=== PATIENT | female | born 1975 | race African-American/Black ===

== ENCOUNTER 2016-06-30 10:18 | Inpatient (IN) | payer MEDICARE, MEDICAID ==
[2016-06-30] VITALS (450 sets, daily range): BP systolic 76–189; BP diastolic 51–146; PULSE 40–151; TEMP 31.4–35.9; O2SAT 45–100
[~2016-06-30] VITALS: Ht 170.2 cm; Wt 84.5 kg
[~2016-06-30 10:18] MED LIST: ALEVE 220MG220 MG PO; AMBIEN CR 12.12.5 MG PO; AMITRIPTYLINE H25 M1 PO; CATAPRES 0.1MG0.1 MG PO; CIPRO 500MG TA500 MG PO; FLOVENT DI250 MCG/Ac IH; HYDROMORPHONE HY8 MG PO; KLONOPIN 0.5MG0.5 MG PO; LAMICTAL 100MG100 MG PO; LIORESAL 1010 MG/TAB PO; LIORESAL20 MG PO; LYRICA 100MG C100 M1; NAPROSYN500 MG PO; OXYCODONE5 M1 PO; PROVENTIL0.09 MG/A1 IH; RELISTOR I12 MG/0.6 SC; ROBAXIN 75750 MG/TAB PO; ROXICODONE 55 MG/TAB PO; STOOL SOFTENER; URELLE PO; VALIUM5 MG PO; ZOLOFT 100MG100 MG PO
[2016-06-30 10:34] LABS: BASO # 0.1 (0.0-0.2); BASO % 0.6 % (0.0-2.0); EOS # 0.1 (0.0-0.7); GRAN # 7.3 (1.4-6.5); GRAN % 61.3 % (42.2-75.2); HEMATOCRIT 44.7 % (37.0-47.0); HEMOGLOBIN 14.7 g/dl (12.5-16.0); LYMPH # 3.8 (1.2-3.4); LYMPH % 31.7 % (20.0-51.0); MEAN CELL VOLUME 94 fl (80.0-100.0); MEAN CORPUSCULAR HEMOGLOBIN 31 pg (27.0-31.0); MEAN CORPUSCULAR HGB CONC 33 g/dl (33.0-37.0); MEAN PLATELET VOLUME 11.4 fl (7.4-10.4); MONO # 0.5 (0.1-0.6); MONO % 4.5 % (1.7-9.3); PLATELET COUNT 205 K/mm3 (130-400); RED BLOOD COUNT 4.76 M/mm3 (4.10-5.30); REDCELL DISTRIBUTION WIDTH-CV 12.9 % (11.5-14.5); WHITE BLOOD COUNT 11.9 K/mm3 (4.8-10.8)
[2016-06-30 10:50] LABS: ADJUSTED CALCIUM 8.6 mg/dL (8.4-10.2); ALBUMIN 3.6 gm/dL (3.5-5.0); BILIRUBIN,TOTAL 1.2 mg/dL (0.0-1.0); CALCIUM 8.3 mg/dL (8.4-10.2); CREATININE, serum 0.7 mg/dL (0.52-1.25); TOTAL PROTEIN 7.2 gm/dL (6.4-8.2)
[2016-06-30 11:00] LABS: POTASSIUM 2.5 mmol/L (3.4-5.0)
[2016-06-30 11:02] LABS: TROPONIN-I 0.654 ng/mL (0.000-0.034)
[2016-06-30 11:15] LABS: PH 6 (5-8); URINE APPEARANCE Hazy; URINE BACTERIA None Seen /hpf; URINE BILIRUBIN Negative (NEGATIVE); URINE BLOOD Negative (NEGATIVE); URINE COLOR Amber; URINE GLUCOSE Negative (NEGATIVE); URINE KETONE 1+ (NEGATIVE); URINE UROBILINOGEN >=4.0 mg/dL (NEGATIVE)
[2016-06-30 12:14] LABS: PROTHROMBIN TIME 11.6 SECONDS (9.7-12.8)
[2016-06-30 12:22] LABS: ARTERIAL BLD GAS TCO2 CT 20.1; ARTERIAL BLOOD GAS BASE EXCESS -5.6 (-2-2); ARTERIAL BLOOD GAS PHT 7.36 C (7.35-7.45); ARTERIAL BLOOD GAS PO2 63.8 mmHg (80-100); ARTERIAL BLOOD GAS PO2T 63.8 (80-100); ARTERIAL BLOOD GAS pH 7.36 (7.35-7.45); OXYHEMOGLOBIN 88.6 %
[2016-06-30 12:23] LABS: ABG VENTILATOR TIDAL VOLUME 500 mL; ATS? NO
[2016-06-30] MEDS ORDERED: AMITRIPTYLINE H10 M1 (12:48)
[2016-06-30 13:03] LABS: VENOUS BLOOD GAS BE 0.5 (-4-4); VENOUS BLOOD GAS SAO2 73.8 % (60-80)
[2016-06-30 13:04] LABS: VENOUS BLOOD GAS SITE CENTRAL LINE
[2016-06-30 13:38] LABS: AMYLASE 82 U/L (30-110); CREATINE KINASE 285 U/L (30-135); LIPASE 364 U/L (23-300)
[2016-06-30 13:41] LABS: PARTIAL THROMBOPLASTIN TIME 27.6 SECONDS (26.0-37.0); PROTHROMBIN TIME 11.6 SECONDS (9.7-12.8)
[2016-06-30 15:02] LABS: PH 6 (5-8); SQUAMOUS EPITHELIAL None Seen /hpf; URINE APPEARANCE Clear; URINE BACTERIA Rare /hpf; URINE BILIRUBIN Negative (NEGATIVE); URINE BLOOD 1+ (NEGATIVE); URINE COLOR Colorless; URINE GLUCOSE 1+ (NEGATIVE); URINE KETONE Trace (NEGATIVE); URINE RBC None Seen /hpf; URINE UROBILINOGEN Negative (NEGATIVE); URINE WBC 0-2 /hpf
[2016-06-30 15:14] LABS: AMPHETAMINE URINE POSITIVE; BARBITURATES URINE NEGATIVE; BENZODIAZEPINES URINE NEGATIVE; BUPRENORPHINE URINE NEGATIVE; METHADONE URINE NEGATIVE; OPIATES URINE NEGATIVE; OXYCODONE URINE POSITIVE; PHENCYCLIDINE URINE NEGATIVE; PROPOXYPHENE URINE NEGATIVE; THC CANNABINOIDS URINE NEGATIVE
[2016-06-30 18:37] LABS: INR 1.1 (0.8-3.0); PROTHROMBIN TIME 12.2 SECONDS (9.7-12.8)
[2016-06-30 18:39] LABS: PARTIAL THROMBOPLASTIN TIME 28.3 SECONDS (26.0-37.0)
[2016-06-30 18:50] LABS: ALBUMIN 3.1 gm/dL (3.5-5.0); BILIRUBIN,TOTAL 1.3 mg/dL (0.0-1.0); CALCIUM 7.3 mg/dL (8.4-10.2); CREATININE, serum 0.54 mg/dL (0.52-1.25); MAGNESIUM 1.3 mg/dL (1.6-2.3); POTASSIUM 3.2 mmol/L (3.4-5.0); TOTAL PROTEIN 6.6 gm/dL (6.4-8.2)
[2016-06-30 19:06] LABS: VENOUS BLOOD GAS SAO2 61.1 % (60-80); VENOUS BLOOD GAS SITE CENTRAL LINE
[2016-06-30 19:07] LABS: BILIRUBIN,DIRECT 0.6 mg/dL (0.0-0.4)
[2016-06-30 19:09] LABS: TROPONIN-I 1.44 ng/mL (0.000-0.034)
[2016-07-01] VITALS (994 sets, daily range): BP systolic 101–141; BP diastolic 7–94; PULSE 59–101; TEMP 32–36.5; O2SAT 45–100
[2016-07-01 00:32] LABS: VENOUS BLOOD GAS BE -7.4 (-4-4); VENOUS BLOOD GAS SAO2 77.3 % (60-80); VENOUS BLOOD GAS SITE CENTRAL LINE
[2016-07-01 00:33] LABS: ARTERIAL BLD GAS O2 SATURATION 94.8 % (92-100); ARTERIAL BLD GAS TCO2 CT 19.5; ARTERIAL BLOOD GAS BASE EXCESS -7.7 (-2-2); ARTERIAL BLOOD GAS HCO3 18.3 meq/L (22-26)
[2016-07-01 00:34] LABS: ALLEN TEST NO; ARTERIAL BLOOD GAS PO2 69.1 mmHg (80-100); ARTERIAL BLOOD GAS pH 7.33 (7.35-7.45); ATS? NO
[2016-07-01 00:39] LABS: INR 1.1 (0.8-3.0); PROTHROMBIN TIME 11.7 SECONDS (9.7-12.8)
[2016-07-01 00:50] LABS: CREATININE, serum 0.51 mg/dL (0.52-1.25); MAGNESIUM 1.7 mg/dL (1.6-2.3); PHOSPHOROUS 2.9 mg/dL (2.5-4.5); POTASSIUM 3.9 mmol/L (3.4-5.0)
[2016-07-01 01:07] LABS: ALBUMIN 3.3 gm/dL (3.5-5.0); BILIRUBIN,DIRECT 1.2 mg/dL (0.0-0.4); BILIRUBIN,TOTAL 1.5 mg/dL (0.0-1.0); TOTAL PROTEIN 6.6 gm/dL (6.4-8.2)
[2016-07-01 01:17] LABS: TROPONIN-I 1.8 ng/mL (0.000-0.034)
[2016-07-01 05:51] LABS: ARTERIAL BLOOD GAS PO2 78.5 mmHg (80-100); ARTERIAL BLOOD GAS pH 7.37 (7.35-7.45)
[2016-07-01 05:52] LABS: ALLEN TEST NO; ARTERIAL BLD GAS TCO2 CT 21.3; ARTERIAL BLOOD GAS HCO3 20.1 meq/L (22-26); ATS? NO
[2016-07-01 06:33] LABS: PROTHROMBIN TIME 11.6 SECONDS (9.7-12.8)
[2016-07-01 06:36] LABS: PARTIAL THROMBOPLASTIN TIME 29.6 SECONDS (26.0-37.0)
[2016-07-01 06:45] LABS: ADJUSTED CALCIUM 7.6 mg/dL (8.4-10.2); BILIRUBIN,DIRECT 0.7 mg/dL (0.0-0.4); BILIRUBIN,TOTAL 0.9 mg/dL (0.0-1.0); CALCIUM 6.8 mg/dL (8.4-10.2); CREATININE, serum 0.44 mg/dL (0.52-1.25); TOTAL PROTEIN 6.2 gm/dL (6.4-8.2)
[2016-07-01 07:04] LABS: POTASSIUM 2.9 mmol/L (3.4-5.0)
[2016-07-01 07:13] LABS: MAGNESIUM 1.8 mg/dL (1.6-2.3); PHOSPHOROUS 1.2 mg/dL (2.5-4.5)
[2016-07-01 07:34] LABS: TROPONIN-I 2.08 ng/mL (0.000-0.034)
[2016-07-01] MEDS ORDERED: DAZIDOX20 MG (07:41)
[2016-07-01 10:47] LABS: ARTERIAL BLD GAS O2 SATURATION 96.8 % (92-100); ARTERIAL BLD GAS TCO2 CT 21.1; ARTERIAL BLOOD GAS BASE EXCESS -3.5 (-2-2); ARTERIAL BLOOD GAS HCO3 20.1 meq/L (22-26); ARTERIAL BLOOD GAS PO2 92.9 mmHg (80-100); ARTERIAL BLOOD GAS pH 7.41 (7.35-7.45)
[2016-07-01 10:48] LABS: ALLEN TEST NO; ATS? NO
[2016-07-01 11:55] LABS: BASO % 0.5 % (0.0-2.0); EOS % 0.6 % (0-4.0); GRAN # 4.8 (1.4-6.5); GRAN % 78.5 % (42.2-75.2); HEMATOCRIT 42.3 % (37.0-47.0); HEMOGLOBIN 14.1 g/dl (12.5-16.0); LYMPH % 15.4 % (20.0-51.0); MEAN CELL VOLUME 94 fl (80.0-100.0); MEAN CORPUSCULAR HEMOGLOBIN 31 pg (27.0-31.0); MEAN CORPUSCULAR HGB CONC 33 g/dl (33.0-37.0); MEAN PLATELET VOLUME 12.1 fl (7.4-10.4); MONO # 0.3 (0.1-0.6); MONO % 4.7 % (1.7-9.3); PLATELET COUNT 157 K/mm3 (130-400); RED BLOOD COUNT 4.51 M/mm3 (4.10-5.30); REDCELL DISTRIBUTION WIDTH-CV 12.9 % (11.5-14.5); WHITE BLOOD COUNT 6.2 K/mm3 (4.8-10.8)
[2016-07-01 11:58] LABS: ARTERIAL BLD GAS O2 SATURATION 95.5 % (92-100); ARTERIAL BLD GAS TCO2 CT 22.8; ARTERIAL BLOOD GAS BASE EXCESS -4.2 (-2-2); ARTERIAL BLOOD GAS HCO3 21.5 meq/L (22-26); ARTERIAL BLOOD GAS PHT 7.39 C (7.35-7.45); ARTERIAL BLOOD GAS PO2 85.3 mmHg (80-100); ARTERIAL BLOOD GAS PO2T 64.7 (80-100); ARTERIAL BLOOD GAS pH 7.33 (7.35-7.45); OXYHEMOGLOBIN 94.7 %
[2016-07-01 11:59] LABS: ATS? NO
[2016-07-01 12:59] LABS: PROTHROMBIN TIME 11.6 SECONDS (9.7-12.8)
[2016-07-01 13:02] LABS: PARTIAL THROMBOPLASTIN TIME 31.2 SECONDS (26.0-37.0)
[2016-07-01 14:08] LABS: ALBUMIN 2.8 gm/dL (3.5-5.0); CALCIUM 6.6 mg/dL (8.4-10.2); CREATININE, serum 0.45 mg/dL (0.52-1.25); MAGNESIUM 1.5 mg/dL (1.6-2.3); PHOSPHOROUS 1.4 mg/dL (2.5-4.5); POTASSIUM 3.5 mmol/L (3.4-5.0)
[2016-07-01 14:25] LABS: TROPONIN-I 2.08 ng/mL (0.000-0.034)
[2016-07-01 14:33] LABS: BILIRUBIN,DIRECT 0.7 mg/dL (0.0-0.4)
[2016-07-01 18:06] LABS: INR 1.1 (0.8-3.0); PROTHROMBIN TIME 11.8 SECONDS (9.7-12.8)
[2016-07-01 18:14] LABS: ALBUMIN 2.6 gm/dL (3.5-5.0); CALCIUM 6.6 mg/dL (8.4-10.2); CREATININE, serum 0.5 mg/dL (0.52-1.25); MAGNESIUM 1.4 mg/dL (1.6-2.3); PHOSPHOROUS 1.4 mg/dL (2.5-4.5); POTASSIUM 3.8 mmol/L (3.4-5.0); TOTAL PROTEIN 5.9 gm/dL (6.4-8.2)
[2016-07-01 18:21] LABS: BILIRUBIN,DIRECT 0.7 mg/dL (0.0-0.4)
[2016-07-01 18:26] LABS: TROPONIN-I 1.79 ng/mL (0.000-0.034)
[2016-07-02] VITALS (1216 sets, daily range): BP systolic 95–147; BP diastolic 59–100; PULSE 102–140; TEMP 36.7–37.3; O2SAT 59–100
[2016-07-02 00:58] LABS: INR 1.1 (0.8-3.0); PROTHROMBIN TIME 12.6 SECONDS (9.7-12.8)
[2016-07-02 01:00] LABS: CALCIUM 6.4 mg/dL (8.4-10.2); CREATININE, serum 0.49 mg/dL (0.52-1.25); MAGNESIUM 1.2 mg/dL (1.6-2.3); PHOSPHOROUS 2.1 mg/dL (2.5-4.5); POTASSIUM 3.7 mmol/L (3.4-5.0)
[2016-07-02 01:22] LABS: ALBUMIN 2.5 gm/dL (3.5-5.0); BILIRUBIN,DIRECT 0.6 mg/dL (0.0-0.4); BILIRUBIN,TOTAL 0.7 mg/dL (0.0-1.0); TOTAL PROTEIN 5.6 gm/dL (6.4-8.2)
[2016-07-02 01:23] LABS: TROPONIN-I 1.88 ng/mL (0.000-0.034)
[2016-07-02 05:20] LABS: ARTERIAL BLD GAS O2 SATURATION 96.9 % (92-100); ARTERIAL BLD GAS TCO2 CT 19.9; ARTERIAL BLOOD GAS BASE EXCESS -4.5 (-2-2); ARTERIAL BLOOD GAS HCO3 18.9 meq/L (22-26); ARTERIAL BLOOD GAS PO2 88.2 mmHg (80-100); ARTERIAL BLOOD GAS pH 7.41 (7.35-7.45)
[2016-07-02 05:21] LABS: ALLEN TEST NO; ATS? NO
[2016-07-02 06:03] LABS: BASO % 0.5 % (0.0-2.0); EOS # 0.1 (0.0-0.7); EOS % 1.2 % (0-4.0); GRAN % 83.1 % (42.2-75.2); LYMPH # 0.7 (1.2-3.4); LYMPH % 11.1 % (20.0-51.0); MEAN CELL VOLUME 95 fl (80.0-100.0); MEAN CORPUSCULAR HGB CONC 33 g/dl (33.0-37.0); MONO # 0.2 (0.1-0.6); MONO % 3.8 % (1.7-9.3); PLATELET COUNT 108 K/mm3 (130-400); REDCELL DISTRIBUTION WIDTH-CV 13.1 % (11.5-14.5); WHITE BLOOD COUNT 6.1 K/mm3 (4.8-10.8)
[2016-07-02 06:15] LABS: ADJUSTED CALCIUM 7.7 mg/dL (8.4-10.2); ALBUMIN 2.3 gm/dL (3.5-5.0); BILIRUBIN,TOTAL 0.8 mg/dL (0.0-1.0); CALCIUM 6.3 mg/dL (8.4-10.2); CREATININE, serum 0.51 mg/dL (0.52-1.25); MAGNESIUM 1.2 mg/dL (1.6-2.3); PHOSPHOROUS 2.2 mg/dL (2.5-4.5); POTASSIUM 3.7 mmol/L (3.4-5.0); TOTAL PROTEIN 5.3 gm/dL (6.4-8.2)
[2016-07-02 06:56] LABS: HEMOGLOBIN 11.8 g/dl (12.5-16.0); MEAN CORPUSCULAR HEMOGLOBIN 31 pg (27.0-31.0)
[2016-07-02 22:53] LABS: PH 5 (5-8); SQUAMOUS EPITHELIAL 0-2 /hpf; URINE APPEARANCE Hazy; URINE BACTERIA Rare /hpf; URINE BILIRUBIN Negative (NEGATIVE); URINE BLOOD 3+ (NEGATIVE); URINE COLOR Yellow; URINE GLUCOSE Negative (NEGATIVE); URINE KETONE Negative (NEGATIVE); URINE RBC >50 /hpf; URINE UROBILINOGEN Negative (NEGATIVE); URINE WBC >50 /hpf
[2016-07-03] VITALS (1091 sets, daily range): BP systolic 149–185; BP diastolic 90–114; PULSE 115–130; TEMP 99.9–101.5; O2SAT 48–100
[2016-07-03 05:56] LABS: BASO % 0.5 % (0.0-2.0); EOS # 0.1 (0.0-0.7); EOS % 1.1 % (0-4.0); GRAN # 4.8 (1.4-6.5); GRAN % 74.9 % (42.2-75.2); LYMPH # 1.2 (1.2-3.4); MEAN CELL VOLUME 94 fl (80.0-100.0); MEAN CORPUSCULAR HGB CONC 33 g/dl (33.0-37.0); MEAN PLATELET VOLUME 12.4 fl (7.4-10.4); MONO # 0.3 (0.1-0.6); MONO % 4.2 % (1.7-9.3); PLATELET COUNT 98 K/mm3 (130-400); RED BLOOD COUNT 3.45 M/mm3 (4.10-5.30); REDCELL DISTRIBUTION WIDTH-CV 13.3 % (11.5-14.5); WHITE BLOOD COUNT 6.4 K/mm3 (4.8-10.8)
[2016-07-03 06:00] LABS: HEMATOCRIT 32.3 % (37.0-47.0); HEMOGLOBIN 10.7 g/dl (12.5-16.0); MEAN CORPUSCULAR HEMOGLOBIN 31 pg (27.0-31.0)
[2016-07-03 06:25] LABS: ADJUSTED CALCIUM 7.5 mg/dL (8.4-10.2); ALBUMIN 2.4 gm/dL (3.5-5.0); BILIRUBIN,TOTAL 0.8 mg/dL (0.0-1.0); CALCIUM 6.2 mg/dL (8.4-10.2); CREATININE, serum 0.63 mg/dL (0.52-1.25); MAGNESIUM 1.1 mg/dL (1.6-2.3); PHOSPHOROUS 2.5 mg/dL (2.5-4.5); POTASSIUM 3.3 mmol/L (3.4-5.0); TOTAL PROTEIN 5.4 gm/dL (6.4-8.2)
[2016-07-03 11:03] LABS: BENZODIAZEPINE SCREEN BLOOD Not Detected (()); DRUG SCREEN BLD - ALCOHOL None Detected (()); TRICYCLIC SCREEN BLOOD Not Detected (())
[2016-07-03 13:15] LABS: SALICYLATE SCREEN BLOOD Not Detected (())
[2016-07-03 13:23] LABS: CREATININE, serum 0.59 mg/dL (0.52-1.25); POTASSIUM 3.9 mmol/L (3.4-5.0)
[2016-07-03 18:30] LABS: MAGNESIUM 2.3 mg/dL (1.6-2.3)
[2016-07-04] VITALS (888 sets, daily range): BP systolic 127–182; BP diastolic 62–102; PULSE 101–119; TEMP 37.1; O2SAT 57–100
[2016-07-04 05:21] LABS: BASO % 0.5 % (0.0-2.0); EOS # 0.1 (0.0-0.7); EOS % 1.8 % (0-4.0); GRAN % 77.1 % (42.2-75.2); LYMPH # 0.9 (1.2-3.4); LYMPH % 14.3 % (20.0-51.0); MEAN CELL VOLUME 92 fl (80.0-100.0); MEAN CORPUSCULAR HGB CONC 34 g/dl (33.0-37.0); MEAN PLATELET VOLUME 11.7 fl (7.4-10.4); MONO # 0.4 (0.1-0.6); PLATELET COUNT 101 K/mm3 (130-400); RED BLOOD COUNT 3.82 M/mm3 (4.10-5.30); REDCELL DISTRIBUTION WIDTH-CV 13.1 % (11.5-14.5); WHITE BLOOD COUNT 6.5 K/mm3 (4.8-10.8)
[2016-07-04 05:30] LABS: ADJUSTED CALCIUM 7.9 mg/dL (8.4-10.2); ALBUMIN 2.7 gm/dL (3.5-5.0); BILIRUBIN,TOTAL 1.2 mg/dL (0.0-1.0); CALCIUM 6.9 mg/dL (8.4-10.2); CREATININE, serum 0.51 mg/dL (0.52-1.25); MAGNESIUM 1.7 mg/dL (1.6-2.3); PHOSPHOROUS 2.8 mg/dL (2.5-4.5); POTASSIUM 3.6 mmol/L (3.4-5.0); TOTAL PROTEIN 6.1 gm/dL (6.4-8.2)
[2016-07-04 05:43] LABS: TROPONIN-I 2.55 ng/mL (0.000-0.034)
[2016-07-04 05:52] LABS: HEMATOCRIT 35.2 % (37.0-47.0); HEMOGLOBIN 11.9 g/dl (12.5-16.0); MEAN CORPUSCULAR HEMOGLOBIN 31 pg (27.0-31.0)
[2016-07-04 10:53] LABS: ARTERIAL BLD GAS TCO2 CT 21.8; ARTERIAL BLOOD GAS BASE EXCESS -1.7 (-2-2); ARTERIAL BLOOD GAS HCO3 20.9 meq/L (22-26); ARTERIAL BLOOD GAS PHT 7.47 C (7.35-7.45); ARTERIAL BLOOD GAS pH 7.47 (7.35-7.45); ATS? YES; OXYHEMOGLOBIN 90.2 %
[2016-07-05] VITALS (1007 sets, daily range): BP systolic 104–182; BP diastolic 67–110; PULSE 93–115; TEMP 36.6–37.4; O2SAT 30–100
[2016-07-05 05:32] LABS: BASO % 0.8 % (0.0-2.0); EOS # 0.2 (0.0-0.7); EOS % 4.4 % (0-4.0); GRAN # 2.1 (1.4-6.5); GRAN % 58.9 % (42.2-75.2); HEMATOCRIT 39.3 % (37.0-47.0); HEMOGLOBIN 13.1 g/dl (12.5-16.0); LYMPH # 0.8 (1.2-3.4); LYMPH % 22.9 % (20.0-51.0); MEAN CELL VOLUME 93 fl (80.0-100.0); MEAN CORPUSCULAR HEMOGLOBIN 31 pg (27.0-31.0); MEAN CORPUSCULAR HGB CONC 33 g/dl (33.0-37.0); MEAN PLATELET VOLUME 11.4 fl (7.4-10.4); MONO # 0.5 (0.1-0.6); MONO % 12.4 % (1.7-9.3); PLATELET COUNT 101 K/mm3 (130-400); RED BLOOD COUNT 4.24 M/mm3 (4.10-5.30); WHITE BLOOD COUNT 3.6 K/mm3 (4.8-10.8)
[2016-07-05 05:45] LABS: ADJUSTED CALCIUM 8.9 mg/dL (8.4-10.2); ALBUMIN 2.9 gm/dL (3.5-5.0); BILIRUBIN,TOTAL 1.2 mg/dL (0.0-1.0); CREATININE, serum 0.42 mg/dL (0.52-1.25); MAGNESIUM 1.6 mg/dL (1.6-2.3); PHOSPHOROUS 3.4 mg/dL (2.5-4.5); POTASSIUM 3.8 mmol/L (3.4-5.0); TOTAL PROTEIN 6.6 gm/dL (6.4-8.2)
[2016-07-06] VITALS (234 sets, daily range): BP systolic 123–160; BP diastolic 78–101; PULSE 80–106; TEMP 98.1–100; O2SAT 46–100
[2016-07-06 06:12] LABS: MEAN CELL VOLUME 91 fl (80.0-100.0); MEAN CORPUSCULAR HGB CONC 33 g/dl (33.0-37.0); MEAN PLATELET VOLUME 11.9 fl (7.4-10.4); PLATELET COUNT 105 K/mm3 (130-400); RED BLOOD COUNT 3.84 M/mm3 (4.10-5.30); REDCELL DISTRIBUTION WIDTH-CV 12.9 % (11.5-14.5); WHITE BLOOD COUNT 3.9 K/mm3 (4.8-10.8)
[2016-07-06 06:18] LABS: ADD PATHOLOGY DIFF REVIEW NO; ALBUMIN 2.6 gm/dL (3.5-5.0); BILIRUBIN,TOTAL 0.8 mg/dL (0.0-1.0); CALCIUM 7.9 mg/dL (8.4-10.2); CREATININE, serum 0.54 mg/dL (0.52-1.25); HEMOGLOBIN 11.7 g/dl (12.5-16.0); MAGNESIUM 1.6 mg/dL (1.6-2.3); MEAN CORPUSCULAR HEMOGLOBIN 30 pg (27.0-31.0); PHOSPHOROUS 4.1 mg/dL (2.5-4.5); TOTAL PROTEIN 5.9 gm/dL (6.4-8.2)
[2016-07-06 06:56] LABS: BAND 2 % (0-10)
[2016-07-06 06:58] LABS: EOSINOPHIL 7 % (0-4); PLATELET ESTIMATE DECREASED (NORMAL)
[2016-07-06 06:59] LABS: TOTAL CELLS COUNTED 100
[2016-07-06 07:01] LABS: NEUTROPHILS 45 % (42.0-75.2)
[2016-07-07] VITALS (351 sets, daily range): BP systolic 96–159; BP diastolic 64–120; PULSE 81–106; TEMP 98.1–99.6; O2SAT 71–100
[2016-07-07 07:48] LABS: MEAN CELL VOLUME 92 fl (80.0-100.0); MEAN CORPUSCULAR HGB CONC 33 g/dl (33.0-37.0); MEAN PLATELET VOLUME 11.8 fl (7.4-10.4); PLATELET COUNT 123 K/mm3 (130-400); REDCELL DISTRIBUTION WIDTH-CV 13.2 % (11.5-14.5); WHITE BLOOD COUNT 4.8 K/mm3 (4.8-10.8)
[2016-07-07 07:59] LABS: ADD PATHOLOGY DIFF REVIEW NO; HEMATOCRIT 34.9 % (37.0-47.0); HEMOGLOBIN 11.6 g/dl (12.5-16.0); MEAN CORPUSCULAR HEMOGLOBIN 31 pg (27.0-31.0)
[2016-07-07 08:12] LABS: ALBUMIN 2.7 gm/dL (3.5-5.0); BILIRUBIN,DIRECT 0.4 mg/dL (0.0-0.4); BILIRUBIN,TOTAL 0.5 mg/dL (0.0-1.0); CALCIUM 8.4 mg/dL (8.4-10.2); CREATININE, serum 0.59 mg/dL (0.52-1.25); TOTAL PROTEIN 6.2 gm/dL (6.4-8.2)
[2016-07-07 11:31] LABS: BAND 6 % (0-10); BASOPHIL 2 % (0-2); EOSINOPHIL 2 % (0-4); HYPOCHROMIA 1+; METAMYELOCYTE 1 % (0-0); NEUTROPHILS 41 % (42.0-75.2); PLATELET ESTIMATE DECREASED (NORMAL); TOTAL CELLS COUNTED 100
[2016-07-08] VITALS (219 sets, daily range): BP systolic 110–143; BP diastolic 51–97; PULSE 91–122; TEMP 97.5–101.3; O2SAT 82–99
[2016-07-08 06:19] LABS: HEMOGLOBIN 12.1 g/dl (12.5-16.0); MEAN CELL VOLUME 91 fl (80.0-100.0); MEAN CORPUSCULAR HEMOGLOBIN 31 pg (27.0-31.0); MEAN CORPUSCULAR HGB CONC 34 g/dl (33.0-37.0); PLATELET COUNT 151 K/mm3 (130-400); RED BLOOD COUNT 3.95 M/mm3 (4.10-5.30); WHITE BLOOD COUNT 4.8 K/mm3 (4.8-10.8)
[2016-07-08 06:22] LABS: HEMATOCRIT 35.9 % (37.0-47.0)
[2016-07-08 06:23] LABS: ADD PATHOLOGY DIFF REVIEW NO
[2016-07-08 06:45] LABS: ALBUMIN 3.1 gm/dL (3.5-5.0); BILIRUBIN,DIRECT 0.4 mg/dL (0.0-0.4); BILIRUBIN,TOTAL 0.7 mg/dL (0.0-1.0); CREATININE, serum 0.6 mg/dL (0.52-1.25); POTASSIUM 3.9 mmol/L (3.4-5.0); TOTAL PROTEIN 6.9 gm/dL (6.4-8.2)
[2016-07-08 09:59] LABS: BAND 4 % (0-10); BASOPHIL 1 % (0-2); NEUTROPHILS 38 % (42.0-75.2); PLATELET ESTIMATE NORMAL (NORMAL)
[2016-07-08 10:00] LABS: EOSINOPHIL 4 % (0-4); TOTAL CELLS COUNTED 100
[2016-07-09] VITALS (8 sets, daily range): BP systolic 92–127; BP diastolic 49–81; PULSE 84–107; TEMP 97.4–100.8
[2016-07-09 06:56] LABS: BASO % 0.4 % (0.0-2.0); EOS # 0.2 (0.0-0.7); EOS % 2.9 % (0-4.0); GRAN # 2.7 (1.4-6.5); GRAN % 51.9 % (42.2-75.2); LYMPH # 1.7 (1.2-3.4); LYMPH % 32.2 % (20.0-51.0); MEAN CELL VOLUME 91 fl (80.0-100.0); MEAN CORPUSCULAR HEMOGLOBIN 30 pg (27.0-31.0); MEAN CORPUSCULAR HGB CONC 33 g/dl (33.0-37.0); MEAN PLATELET VOLUME 12.1 fl (7.4-10.4); MONO # 0.7 (0.1-0.6); MONO % 12.4 % (1.7-9.3); PLATELET COUNT 193 K/mm3 (130-400); RED BLOOD COUNT 3.95 M/mm3 (4.10-5.30); REDCELL DISTRIBUTION WIDTH-CV 13.2 % (11.5-14.5); WHITE BLOOD COUNT 5.3 K/mm3 (4.8-10.8)
[2016-07-09 07:06] LABS: PH 7 (5-8); URINE APPEARANCE Hazy; URINE BACTERIA Rare /hpf; URINE BILIRUBIN Negative (NEGATIVE); URINE BLOOD Negative (NEGATIVE); URINE COLOR Yellow; URINE GLUCOSE Negative (NEGATIVE); URINE KETONE Negative (NEGATIVE); URINE RBC 0-2 /hpf; URINE UROBILINOGEN Negative (NEGATIVE); URINE WBC 0-2 /hpf
[2016-07-09 07:15] LABS: CALCIUM 9.2 mg/dL (8.4-10.2); CREATININE, serum 0.56 mg/dL (0.52-1.25); POTASSIUM 3.8 mmol/L (3.4-5.0)
[2016-07-10 00:31] VITALS: BP 99/59; PULSE 107; TEMP 99.2
[2016-07-10 03:52] VITALS: BP 94/55; PULSE 95; TEMP 98.7
[2016-07-10 05:50] VITALS: BP 115/65; PULSE 105; TEMP 99.1
[2016-07-10 07:34] LABS: BASO # 0.1 (0.0-0.2); BASO % 0.8 % (0.0-2.0); EOS # 0.1 (0.0-0.7); EOS % 2.1 % (0-4.0); GRAN # 4.3 (1.4-6.5); GRAN % 64.6 % (42.2-75.2); LYMPH # 1.4 (1.2-3.4); LYMPH % 21.9 % (20.0-51.0); MEAN CELL VOLUME 93 fl (80.0-100.0); MEAN CORPUSCULAR HGB CONC 33 g/dl (33.0-37.0); MEAN PLATELET VOLUME 11.9 fl (7.4-10.4); MONO # 0.7 (0.1-0.6); MONO % 10.3 % (1.7-9.3); PLATELET COUNT 241 K/mm3 (130-400); RED BLOOD COUNT 3.67 M/mm3 (4.10-5.30); REDCELL DISTRIBUTION WIDTH-CV 13.2 % (11.5-14.5); WHITE BLOOD COUNT 6.6 K/mm3 (4.8-10.8)
[2016-07-10 08:03] LABS: CREATININE, serum 0.63 mg/dL (0.52-1.25); POTASSIUM 3.7 mmol/L (3.4-5.0)
[2016-07-10 08:09] LABS: HEMOGLOBIN 11.2 g/dl (12.5-16.0); MEAN CORPUSCULAR HEMOGLOBIN 31 pg (27.0-31.0)
[2016-07-10 08:14] VITALS: BP 99/68; PULSE 90; TEMP 97.4
[2016-07-10 10:24] VITALS: BP 91/77; PULSE 82; TEMP 97.4
[2016-07-10] MEDS ORDERED: EFFIENT5 MG PO (11:43)
[2016-07-10] MEDS ORDERED: LIPITOR 10MG10 MG PO (11:43)
[2016-07-10] MEDS ORDERED: LOPRESSOR 550 MG/TAB PO (11:43)
[2016-07-10] MEDS ORDERED: CLEOCIN HCL300 MG PO (11:43)
[2016-07-10] MEDS ORDERED: PLAVIX 75MG TAB75 MG PO (11:43)
[2016-07-10] MEDS ORDERED: ZESTRIL 20MG TA20 MG PO (11:43)
[2016-07-10] MEDS ORDERED: NICODERM C21 MG/PATC TD (11:43)
[2016-07-10] MEDS ORDERED: MULTI VITAMINS1 TAB PO (11:43)
[2016-07-10] MEDS ORDERED: PROCARDIA XL 3030 MG PO (11:43)
[2016-07-10] MEDS ORDERED: NITROSTAT0.4 MG/TAB SL (11:43)
[2016-07-10 12:27] VITALS: BP 104/75; PULSE 82; TEMP 97
[2016-07-10] MEDS ORDERED: LIPITOR20 MG PO (12:27)
[2016-07-10] MEDS ORDERED: ZESTRIL 10MG10 MG PO (12:27)
[2016-07-10] MEDS ORDERED: FOLIC ACID 11 MG/TA1 PO (12:32)
== END 2016-07-10 14:45 | disposition home or self-care (01) | DRG 981 ==
LOC: COL.ER 10:18 → EDBD 10:20 → ICU 11:30 → EU 07-03 14:18 → ICU 07-04 12:00 → MEDICAL 07-06 17:10 → IMCU 07-07 11:10 → MEDICAL 07-08 12:43
PROVIDERS: Emergency Medicine; Family Medicine; Internal Medicine; Internal Medicine Interventional Cardiology; Internal Medicine Pulmonary Disease; Nurse Practitioner Family; Psychiatry & Neurology Neurology
PROC: 5A1945Z Respiratory Ventilation, 24-96 Consecutive Hours (ICD-10-PCS; 2016-06-30)
PROC: 027034Z Dilation of Coronary Artery, One Artery with Drug-eluting Intraluminal Device, Percutaneous Approach (ICD-10-PCS; principal; 2016-07-07)
PROC: B2111ZZ Fluoroscopy of Multiple Coronary Arteries using Low Osmolar Contrast (ICD-10-PCS; 2016-07-07)
PROC: B2151ZZ Fluoroscopy of Left Heart using Low Osmolar Contrast (ICD-10-PCS; 2016-07-07)
DX: T43.621A Poisoning by amphetamines, accidental (unintentional), initial encounter (principal); I21.4 Non-ST elevation (NSTEMI) myocardial infarction; A41.9 Sepsis, unspecified organism; J69.0 Pneumonitis due to inhalation of food and vomit; K85.10 Biliary acute pancreatitis without necrosis or infection; K72.00 Acute and subacute hepatic failure without coma; G93.1 Anoxic brain damage, not elsewhere classified; N17.9 Acute kidney failure, unspecified; G72.81 Critical illness myopathy; F10.231 Alcohol dependence with withdrawal delirium; E44.0 Moderate protein-calorie malnutrition; T40.2X1A Poisoning by other opioids, accidental (unintentional), initial encounter; I25.10 Atherosclerotic heart disease of native coronary artery without angina pectoris; I10 Essential (primary) hypertension; F17.210 Nicotine dependence, cigarettes, uncomplicated; G89.29 Other chronic pain; J45.909 Unspecified asthma, uncomplicated; F15.10 Other stimulant abuse, uncomplicated; F11.10 Opioid abuse, uncomplicated; I48.91 Unspecified atrial fibrillation; E83.42 Hypomagnesemia; F41.8 Other specified anxiety disorders; E87.6 Hypokalemia
CPT/HCPCS: 90791-AI; 99223-AI; 99233-AI; 99239; A9585; C1725; C1751; C1760; C1769; C1874; C9600; J0171; J0282; J0583; J0696; J1265; J1630; J1644; J1650; J1885; J1956; J2060; J2250; J2310; J2704; J3010; J3370; J3475; J3480; J7030; J7042; J7050; J7060; Q9967

== ENCOUNTER 2016-07-15 12:21 | Outpatient (CLI) | payer MEDICARE, MEDICAID ==
[~2016-07-15] VITALS: Ht 170.2 cm; Wt 78.6 kg
[2016-07-15 12:15] VITALS: BP 80/50; PULSE 81; TEMP 97.5
[~2016-07-15 12:21] MED LIST changes: +AMITRIPTYLINE H10 M1; +CLEOCIN HCL300 MG PO; +DAZIDOX20 MG; +EFFIENT5 MG PO; +FOLIC ACID 11 MG/TA1 PO; +LIPITOR 10MG10 MG PO; +LIPITOR20 MG PO; +LOPRESSOR 550 MG/TAB PO; +MULTI VITAMINS1 TAB PO; +NICODERM C21 MG/PATC TD; +NITROSTAT0.4 MG/TAB SL; +PLAVIX 75MG TAB75 MG PO; +PROCARDIA XL 3030 MG PO; +ZESTRIL 10MG10 MG PO; +ZESTRIL 20MG TA20 MG PO
[2016-07-15 12:41] LABS: HEMATOCRIT 37.2 % (37.0-47.0); HEMOGLOBIN 12.1 g/dl (12.5-16.0); MEAN CELL VOLUME 94 fl (80.0-100.0); MEAN CORPUSCULAR HEMOGLOBIN 31 pg (27.0-31.0); MEAN CORPUSCULAR HGB CONC 33 g/dl (33.0-37.0); MEAN PLATELET VOLUME 11.4 fl (7.4-10.4); PLATELET COUNT 441 K/mm3 (130-400); RED BLOOD COUNT 3.97 M/mm3 (4.10-5.30); REDCELL DISTRIBUTION WIDTH-CV 13.2 % (11.5-14.5)
[2016-07-15 12:52] LABS: ADJUSTED CALCIUM 9.6 mg/dL (8.4-10.2); ALBUMIN 3.8 gm/dL (3.5-5.0); BILIRUBIN,TOTAL 0.9 mg/dL (0.0-1.0); CALCIUM 9.4 mg/dL (8.4-10.2); CREATININE, serum 1.17 mg/dL (0.52-1.25); POTASSIUM 3.9 mmol/L (3.4-5.0); TOTAL PROTEIN 8.2 gm/dL (6.4-8.2)
[2016-07-15 13:03] LABS: TROPONIN-I 0.017 ng/mL (0.000-0.034)
[2016-07-15 13:08] VITALS: BP 86/62; PULSE 86; TEMP 97.7
[2016-07-15 14:06] VITALS: BP 80/39; PULSE 75; TEMP 98
[2016-07-15 15:36] VITALS: BP 89/50; PULSE 77; TEMP 97.8
== END 2016-07-15 19:02 | disposition home or self-care (01) ==
LOC: EUO 12:21
PROVIDERS: Internal Medicine
DX: R10.13 Epigastric pain (principal)
CPT/HCPCS: J7040

== ENCOUNTER → 2017-02-19 | Outpatient (CLI) | payer MEDICARE, MEDICAID | LOC: COL.VAS 15:32 | DX: Z13.89 Encounter for screening for other disorder (principal); M79.89 Other specified soft tissue disorders; L53.9 Erythematous condition, unspecified ==

== ENCOUNTER 2017-02-26 22:15 | Inpatient (IN) | payer MEDICARE, MEDICAID ==
[~2017-02-26] VITALS: Ht 172.7 cm; Wt 86.7 kg
[2017-02-26] MEDS ORDERED: ROXICODONE15 MG PO (23:30)
[2017-02-26 23:33] LABS: BASO # 0.1 (0.0-0.2); BASO % 0.9 % (0.0-2.0); EOS # 0.2 (0.0-0.7); EOS % 2.9 % (0-4.0); GRAN # 2.9 (1.4-6.5); GRAN % 51.2 % (42.2-75.2); HEMATOCRIT 43.5 % (37.0-47.0); HEMOGLOBIN 13.9 g/dl (12.5-16.0); LYMPH # 2.1 (1.2-3.4); LYMPH % 36.7 % (20.0-51.0); MEAN CELL VOLUME 92 fl (80.0-100.0); MEAN CORPUSCULAR HEMOGLOBIN 29 pg (27.0-31.0); MEAN CORPUSCULAR HGB CONC 32 g/dl (33.0-37.0); MEAN PLATELET VOLUME 9.6 fl (7.4-10.4); MONO # 0.5 (0.1-0.6); MONO % 8.1 % (1.7-9.3); PLATELET COUNT 325 K/mm3 (130-400); RED BLOOD COUNT 4.73 M/mm3 (4.10-5.30); WHITE BLOOD COUNT 5.6 K/mm3 (4.8-10.8)
[2017-02-26] MEDS ORDERED: KLONOPIN WAFERS1 MG PO (23:36)
[2017-02-26 23:45] LABS: ADJUSTED CALCIUM 9.2 mg/dL (8.4-10.2); ALBUMIN 4.2 gm/dL (3.5-5.0); BILIRUBIN,TOTAL 0.4 mg/dL (0.0-1.0); C-REACTIVE PROTEIN 1.7 mg/dL (0.0-0.9); CALCIUM 9.4 mg/dL (8.4-10.2); CREATININE, serum 0.76 mg/dL (0.52-1.25); POTASSIUM 3.6 mmol/L (3.4-5.0); TOTAL PROTEIN 8.1 gm/dL (6.4-8.2)
[2017-02-27] VITALS (7 sets, daily range): BP systolic 123–147; BP diastolic 80–95; PULSE 63–100; TEMP 97.2–98.6
[2017-02-27 00:11] LABS: AMPHETAMINE URINE POSITIVE; BARBITURATES URINE NEGATIVE; BENZODIAZEPINES URINE NEGATIVE; BUPRENORPHINE URINE NEGATIVE; METHADONE URINE NEGATIVE; OPIATES URINE POSITIVE; OXYCODONE URINE POSITIVE; PHENCYCLIDINE URINE NEGATIVE; PROPOXYPHENE URINE NEGATIVE; THC CANNABINOIDS URINE POSITIVE; TRICYCLIC ANTIDEPRESS URINE NEGATIVE
[2017-02-27 07:26] LABS: BASO % 0.8 % (0.0-2.0); EOS # 0.2 (0.0-0.7); EOS % 3.3 % (0-4.0); GRAN % 38.5 % (42.2-75.2); HEMATOCRIT 38.7 % (37.0-47.0); HEMOGLOBIN 12.3 g/dl (12.5-16.0); LYMPH # 2.5 (1.2-3.4); LYMPH % 47.2 % (20.0-51.0); MEAN CELL VOLUME 93 fl (80.0-100.0); MEAN CORPUSCULAR HEMOGLOBIN 29 pg (27.0-31.0); MEAN CORPUSCULAR HGB CONC 32 g/dl (33.0-37.0); MEAN PLATELET VOLUME 9.7 fl (7.4-10.4); MONO # 0.5 (0.1-0.6); PLATELET COUNT 292 K/mm3 (130-400); RED BLOOD COUNT 4.18 M/mm3 (4.10-5.30); WHITE BLOOD COUNT 5.2 K/mm3 (4.8-10.8)
[2017-02-27 07:36] LABS: CALCIUM 8.2 mg/dL (8.4-10.2); CHOLESTEROL RISK RATIO 3.8; CREATININE, serum 0.69 mg/dL (0.52-1.25); POTASSIUM 3.3 mmol/L (3.4-5.0)
[2017-02-27 09:32] LABS: COLLECTION METHOD CLEAN CATCH
[2017-02-27 09:37] LABS: MUCOUS Present /lpf; PH 6 (5-8); SQUAMOUS EPITHELIAL 0-2 /hpf; URINE APPEARANCE Clear; URINE BACTERIA None Seen /hpf; URINE BILIRUBIN Negative (NEGATIVE); URINE BLOOD Negative (NEGATIVE); URINE COLOR Straw; URINE GLUCOSE Negative (NEGATIVE); URINE KETONE Negative (NEGATIVE); URINE LEUKOCYTE ESTERASE Negative (NEGATIVE); URINE PROTEIN(semi-quant) Negative (NEGATIVE); URINE RBC 0-2 /hpf; URINE UROBILINOGEN Negative (NEGATIVE); URINE WBC 0-2 /hpf
[2017-02-27] MEDS ORDERED: LASIX 40MG TABL40 MG PO (16:23)
[2017-02-28 03:54] VITALS: BP 146/82; PULSE 88; TEMP 98.8
[2017-02-28 06:57] LABS: ADD PATHOLOGY DIFF REVIEW NO
[2017-02-28 07:01] LABS: HEMATOCRIT 39.8 % (37.0-47.0); HEMOGLOBIN 12.7 g/dl (12.5-16.0); MEAN CELL VOLUME 92 fl (80.0-100.0); MEAN CORPUSCULAR HEMOGLOBIN 29 pg (27.0-31.0); MEAN CORPUSCULAR HGB CONC 32 g/dl (33.0-37.0); MEAN PLATELET VOLUME 9.8 fl (7.4-10.4); PLATELET COUNT 318 K/mm3 (130-400); RED BLOOD COUNT 4.32 M/mm3 (4.10-5.30); WHITE BLOOD COUNT 5.6 K/mm3 (4.8-10.8)
[2017-02-28 07:19] LABS: CALCIUM 8.4 mg/dL (8.4-10.2); CREATININE, serum 0.67 mg/dL (0.52-1.25); MAGNESIUM 1.8 mg/dL (1.6-2.3)
[2017-02-28 08:20] VITALS: BP 126/89; PULSE 69; TEMP 97.6
[2017-02-28 08:21] LABS: BAND 8 % (0-10); EOSINOPHIL 2 % (0-4); LYMPHOCYTE 27 % (20.0-51.0); NEUTROPHILS 57 % (42.0-75.2); TOTAL CELLS COUNTED 100
[2017-02-28 08:33] LABS: PLATELET ESTIMATE NORMAL (NORMAL)
[2017-02-28 12:05] VITALS: BP 130/84; PULSE 60; TEMP 97.4
[2017-02-28 15:57] VITALS: BP 116/68; PULSE 66; TEMP 97.8
[2017-02-28 20:13] VITALS: BP 128/54; PULSE 74
[2017-02-28 23:53] VITALS: BP 143/89; PULSE 66; TEMP 98.1
[2017-03-01 03:28] VITALS: BP 131/90; PULSE 65; TEMP 98
[2017-03-01 08:45] VITALS: BP 115/64; PULSE 61; TEMP 96
[2017-03-01 12:33] VITALS: BP 131/82; PULSE 55; TEMP 97
[2017-03-01 17:00] VITALS: BP 132/45; PULSE 64; TEMP 98.2
[2017-03-01 19:29] VITALS: BP 100/50; PULSE 77; TEMP 96.8
[2017-03-01 23:42] VITALS: BP 128/86; PULSE 67; TEMP 96.9
[2017-03-02 04:43] VITALS: BP 111/71; PULSE 67; TEMP 98.3
[2017-03-02 07:44] LABS: CALCIUM 8.7 mg/dL (8.4-10.2); CREATININE, serum 0.76 mg/dL (0.52-1.25); POTASSIUM 3.9 mmol/L (3.4-5.0)
[2017-03-02 07:57] VITALS: BP 109/63; PULSE 67; TEMP 97.7
[2017-03-02 11:05] VITALS: BP 120/76; PULSE 62; TEMP 97.3
[2017-03-02 16:20] VITALS: BP 140/86; PULSE 76; TEMP 97.7
[2017-03-02 20:16] VITALS: BP 106/52; PULSE 76; TEMP 97.3
[2017-03-02 23:14] VITALS: BP 121/74; PULSE 66; TEMP 97.5
[2017-03-03 05:20] VITALS: BP 105/66; PULSE 66; TEMP 97
[2017-03-03 09:46] VITALS: BP 103/57; PULSE 69; TEMP 97.4
[2017-03-03 11:11] VITALS: BP 109/77; PULSE 63; TEMP 97.3
[2017-03-03 15:51] VITALS: BP 103/61; PULSE 64; TEMP 98.2
[2017-03-03 19:48] VITALS: BP 106/64; PULSE 72; TEMP 97.8
[2017-03-03 23:49] VITALS: BP 104/70; PULSE 69; TEMP 97.1
[2017-03-04 04:30] VITALS: BP 118/66; PULSE 64; TEMP 97.7
[2017-03-04 08:00] VITALS: BP 120/68; PULSE 59; TEMP 98.1
[2017-03-04] MEDS ORDERED: CIPRO 500MG TA500 MG PO (08:23)
[2017-03-04] MEDS ORDERED: FLAGYL500 MG PO (08:24)
[2017-03-04] MEDS ORDERED: DIFLUCAN150 MG PO (08:27)
[2017-03-04] MEDS ORDERED: NEURONTIN100 MG/CAP PO (10:08)
== END 2017-03-04 12:55 | disposition home or self-care (01) | DRG 603 ==
LOC: COL.ER 22:15 → MEDICAL 22:57
PROVIDERS: Internal Medicine; Nurse Practitioner; Physician Assistant
PROC: 0J9N3ZZ Drainage of Right Lower Leg Subcutaneous Tissue and Fascia, Percutaneous Approach (ICD-10-PCS; principal; 2017-02-26)
DX: L03.115 Cellulitis of right lower limb (principal); I10 Essential (primary) hypertension; B96.7 Clostridium perfringens [C. perfringens] as the cause of diseases classified elsewhere; J45.909 Unspecified asthma, uncomplicated; B37.3 Candidiasis of vulva and vagina; F11.10 Opioid abuse, uncomplicated; F15.10 Other stimulant abuse, uncomplicated; F12.10 Cannabis abuse, uncomplicated; F17.210 Nicotine dependence, cigarettes, uncomplicated; G89.29 Other chronic pain; M54.2 Cervicalgia; Z91.14 Patient's other noncompliance with medication regimen; I25.10 Atherosclerotic heart disease of native coronary artery without angina pectoris; Z95.5 Presence of coronary angioplasty implant and graft; G62.9 Polyneuropathy, unspecified
CPT/HCPCS: 99222-AI; 99233-AI; 99239; J0744; J1170; J1650; J3370; J7030; J7040; J7050; J7120